=== PATIENT | female | born 1975 | race Caucasian/White ===

== ENCOUNTER 2016-08-31 11:31 | Day surgery (SDC) | payer OTHER ==
[2016-08-27 14:58] VITALS: BMI 37.5
[~2016-08-31 11:31] MED LIST: DEXAMETHASONE SOD PHOSPHATE 10 MG/ML 1 ML VIAL IV ONE; HYDROmorphone 1 MG/ML 1 ML SYRINGE IVP PRN; LACTATED RINGERS 1,000 ML IV SCH; MIDAZOLAM 2 MG/2 ML VIAL IV PRN; ONDANSETRON 4 MG/2 ML VIAL IVP ONE; Pre Op ABX Message 1 EACH MISC MISCELLANE ONE; SCOPOLAMINE 1.5MG/72HR PATCH TRANSDERM ONE
[2016-08-31 11:47] VITALS: RESP 16; TEMP 98.2
[2016-08-31] MEDS ORDERED: LIDOCAINE 1% 20 ML VIAL (10MG/ML) FOR IV START INTRADERMA ONE (11:55)
[2016-08-31] MEDS ORDERED: PROPOFOL 10 MG/ML 20 ML VIAL IV ONE (13:46)
[2016-08-31] MEDS ORDERED: LACTATED RINGERS 1,000 ML IV ONE (14:03)
[2016-08-31] MEDS ORDERED: BUPIVACAIN-EPI 0.25%-1:200,000 30 ML VIAL SQ ONE ×2 (14:18)
[2016-08-31 14:51] VITALS: BP 100/60; PULSE 54
--- NOTE | 2016-08-31 18:47 | P.OP ---
Date of Procedure: 08/31/16 Preoperative Diagnosis: Perianal excoriation and ulcers Morbid Obesity BMI 37.6 Postoperative Diagnosis: Same Procedure(s) Performed: Colonoscopy with random bx Full thickness skin biopsy perianal area Anesthesia: MAC, local Surgeon: Ernestina Otoole Pathology: other Condition: stable Disposition: PACU Indications for Procedure: 41 yrs old female presents with persistent perianal excoriation and multiple non -healing superficial ulcers. No change in bowel habits. She also has tinea cruis in left groin. Multiple topical agents have been used without resolution and she presents for colonoscopy with bx and perianal skin bx to r/o Chron's disease Description of Procedure: The patient was brought to the endoscopy suite and placed in lateral decubitus position. IV sedation was given as per anesthesia team. Patient was on continuous vitals and pulse oximetry monitoring throughout the procedure. A timeout was performed to verify correct patient and correct procedure. Perianal examination did show small external hemorrhoids. Digital rectal examination was performed. No masses or gross blood. A well-lubricated Olympus colonoscope was passed per rectally and was gradually advanced beyond the sigmoid colon, splenic flexure, transverse colon, hepatic flexure and cecum. The ileocecal valve was visualized as well as the appendiceal orifice . The colonoscope was gradually withdrawn inspecting all the mucosal surfaces. Bowel prep was good. No polyps, masses, AV malformations noted. No diverticulosis. Random biopsies taken using cold biopsy forceps . The scope was gradually withdrawn and retroflexed in the rectum . Grade 1 internal hemorrhoids seen. Total withdrawal time was greater than 6 minutes . Betadine was used to prep the perianal skin. 30 mL of 0.25% Marcaine with epinephrine was infiltrated along the proposed skin incision to create a field block. 1.5 cm elliptical skin incision was made along one of the superficial skin ulcer. Full thickness skin bx done. A part of it was sent for ALEJANDRINA mount for fungal elements. Hemostasis checked. Dermabond skin glue applied. Patient tolerated the procedure well and was taken to PACU in stable condition.
== END 2016-08-31 15:40 | disposition home or self-care (01) ==
LOC: ORWHC2ENDO 11:31
PROVIDERS: ATTEND Surgery
DX: K62.6 Ulcer of anus and rectum (principal); L08.89 Other specified local infections of the skin and subcutaneous tissue; E66.01 Morbid (severe) obesity due to excess calories; Z68.37 Body mass index [BMI] 37.0-37.9, adult; Z87.891 Personal history of nicotine dependence; E07.9 Disorder of thyroid, unspecified; F39 Unspecified mood [affective] disorder; X58.XXXA Exposure to other specified factors, initial encounter
CPT/HCPCS: 11100; 45380; 81025; 88305; 88312; Q0112; J1100; J2405; J2704; 87220

== ENCOUNTER → 2018-06-22 | Outpatient (CLI) | payer BC ==
--- NOTE | 2018-06-22 10:46 | MM ---
Reason for exam: screening (asymptomatic). Baseline mammogram. History: Family history of breast cancer in maternal grandmother. Took hormonal contraceptives beginning at age 15. Physical Findings: Nurse did not find any significant physical abnormalities on exam. MG 3D Screening Mammo W/Cad Bilateral CC and MLO view(s) were taken. There are scattered fibroglandular densities. These results were verbally communicated with the patient and result sheet given to the patient on 06/22/18. ASSESSMENT: Benign, BI-RAD 2 RECOMMENDATION: Routine screening mammogram of both breasts in 1 year.
== END | disposition home or self-care (01) ==
LOC: RADMAMWWP 09:41
PROVIDERS: ATTEND Family Medicine
DX: Z12.31 Encounter for screening mammogram for malignant neoplasm of breast (principal); Z80.3 Family history of malignant neoplasm of breast
CPT/HCPCS: 77063; 77067

== ENCOUNTER 2019-11-09 09:16 | Emergency (ER) | payer BC ==
[2019-11-09 09:20] VITALS: RESP 18
--- NOTE | 2019-11-09 09:44 | ED ---
General Adult HPI - General Chief complaint: Neuro Symptoms/Deficit Stated complaint: facial drooping Time Seen by Provider: 11/09/19 09:20 Source: patient, RN notes reviewed, old records reviewed Mode of arrival: ambulatory Limitations: no limitations - History of Present Illness Initial comments: This is a 44-year-old female who presents to the emergency department complaining of left-sided facial droop. Patient states her noticed that at 7 AM yesterday. Patient states she thought it might just go away so she can come in initially. Patient denies any headache. Patient denies any slurred speech. Patient denies any numbness or weakness. Patient denies any recent fever chills or cough. Patient denies any recent cold symptoms. Patient denies any chest pain difficulty breathing shortest breath per patient denies any abdominal pain. - Related Data Home Medications Medication Instructions Recorded Confirmed ALPRAZolam [Xanax] 0.25 mg PO DAILY PRN 08/27/16 08/31/16 Levothyroxine Sodium [Synthroid] 200 mcg PO DAILY 08/27/16 08/31/16 Phentermine HCl [Adipex-P] 37.5 mg PO QAM 08/27/16 08/31/16 Previous Rx's Medication Instructions Recorded valACYclovir HCL [Valacyclovir] 1,000 mg PO TID #30 tab 11/09/19 Allergies Allergy/AdvReac Type Severity Reaction Status Date / Time benzoyl peroxide Allergy Unknown Verified 11/09/19 09:21 salicylic acid Allergy Unknown Verified 11/09/19 09:21 Review of Systems ROS Statement: Those systems with pertinent positive or pertinent negative responses have been documented in the HPI. ROS Other: All systems not noted in ROS Statement are negative. Past Medical History Past Medical History: Thyroid Disorder Additional Past Medical History / Comment(s): change in bowel movement, stomach pain History of Any Multi-Drug Resistant Organisms: None Reported Past Surgical History: Bariatric Surgery, Section, Cholecystectomy, Tubal Ligation, Uterine Ablation Additional Past Surgical History / Comment(s): lap band Past Anesthesia/Blood Transfusion Reactions: Motion Sickness Past Psychological History: Anxiety, Depression Smoking Status: Current every day smoker Past Alcohol Use History: Occasional Past Drug Use History: None Reported - Past Family History Mother Family Medical History: No Reported History General Exam - General Exam Comments Initial Comments: GENERAL: Patient is well-developed and well-nourished. Patient is nontoxic and well- hydrated and is in no acute distress. ENT: Neck is soft and supple. No significant lymphadenopathy is noted. Oropharynx is clear. Moist mucous membranes. Neck has full range of motion without eliciting any pain. EYES: The sclera were anicteric and conjunctiva were pink and moist. Extraocular movements were intact and pupils were equal round and reactive to light. Eyelids were unremarkable. PULMONARY: Unlabored respirations. Good breath sounds bilaterally. No audible rales rhonchi or wheezing was noted. CARDIOVASCULAR: There is a regular rate and rhythm without any murmurs gallops or rubs. ABDOMEN: Soft and nontender with normal bowel sounds. No palpable organomegaly was noted. There is no palpable pulsatile mass. SKIN: Skin is clear with no lesions or rashes and otherwise unremarkable. NEUROLOGIC: Patient is alert and oriented x3. Patient has left-sided facial droop including the forehead. MUSCULOSKELETAL: Normal extremities with adequate strength and full range of motion. No lower extremity swelling or edema. No calf tenderness. LYMPHATICS: No significant lymphadenopathy is noted PSYCHIATRIC: Normal psychiatric evaluation. Limitations: no limitations Course Vital Signs 11/09/19 09:18 Temperature 98.2 F Pulse Rate 80 Respiratory 18 Rate Blood Pressure 121/80 O2 Sat by Pulse 98 Oximetry Medical Decision Making - Medical Decision Making This CT of the brain shows no acute abnormality. Patient's exhibits classic symptoms for Castle's palsy and will be discharged home on antivirals and steroids. Disposition Clinical Impression: Castle's palsy Disposition: HOME SELF-CARE Condition: Good Instructions (If sedation given, give patient instructions): Castle Palsy (ED) Prescriptions: valACYclovir HCL [Valacyclovir] 1,000 mg PO TID #30 tab Is patient prescribed a controlled substance at d/c from ED?: No Referrals: Ronald Manning MD [Primary Care Provider] - 1-2 days Time of Disposition: 10:34
--- NOTE | 2019-11-09 10:21 | CT ---
EXAMINATION TYPE: CT brain wo con DATE OF EXAM: 11/09/2019 COMPARISON: None HISTORY: 44-year-old female Facial drooping for one day TECHNIQUE: Examination was done in axial plane without intravenous contrast. Coronal and sagittal r econstructions performed. CT DLP: 1099.4 mGycm Automated exposure control for dose reduction was used. FINDINGS: There is no evidence of acute intracranial hemorrhage, acute ischemic changes, mass, mass-effect, or extra-axial fluid collection. There is no effacement of cerebral sulci or basal subarachnoid cister ns. There is no hydrocephalus. There is no midline shift. Gutierrez-white matter distinction is preserv ed. Paranasal sinuses and mastoid air cells are well pneumatized. Orbits and globes are intact. Cerumen w ithin the right external auditory canal. IMPRESSION: No acute intracranial abnormality seen. If symptoms persist, follow-up CT or MRI.
[2019-11-09 11:01] VITALS: BP 106/72; PULSE 64; TEMP 98
== END 2019-11-09 11:15 | disposition home or self-care (01) ==
LOC: EC 09:16
DX: G51.0 Bell's palsy (principal); E07.9 Disorder of thyroid, unspecified; F41.9 Anxiety disorder, unspecified; F17.200 Nicotine dependence, unspecified, uncomplicated; Z98.84 Bariatric surgery status; Z79.890 Hormone replacement therapy; Z79.899 Other long term (current) drug therapy; Z88.8 Allergy status to other drugs, medicaments and biological substances
CPT/HCPCS: 70450; 99284

== ENCOUNTER → 2022-03-30 | Outpatient (CLI) | payer OTHER ==
--- NOTE | 2022-03-30 18:18 | CT ---
EXAMINATION TYPE: CT soft tissue neck w con DATE OF EXAM: 03/30/2022 5:44 PM COMPARISON: None HISTORY: palpable lump under chin CT DLP: 644.3 mGycm Automated exposure control for dose reduction was used. CONTRAST: CT scan of the neck is performed following with IV Contrast, patient injected with 100ML mL of Isovue 300. Axial images are obtained, coronal and sagittal reformatted images are reviewed. FINDINGS: Lung apices are clear. There are multiple submandibular soft tissue nodules with the larges t measuring short axis of 1.2 cm most typical of enlarged lymph nodes with mild surrounding soft tiss ue edema. Multilevel hypertrophic and degenerative disc disease of the cervical spine. Vocal cords have a normal appearance. Airway is patent. Base of the tongue symmetric. Parotid glands normal. Nasopharynx and visualized oropharynx symmetric. Submandibular glands normal. There are additional shoddy lymph nodes seen scattered throughout the compartments of the neck. IMPRESSION: Soft tissue nodules corresponding to the palpable abnormality within the submandibular s pace correlate clinically. Most likely etiology pathologic adenopathy. Mild surrounding edema correla te clinically to exclude infectious or neoplastic process.
== END | disposition home or self-care (01) ==
LOC: RADCTMAIN 17:09
PROVIDERS: ATTEND Family Medicine
DX: E04.2 Nontoxic multinodular goiter (principal); R60.0 Localized edema
CPT/HCPCS: 70491; Q9967

== ENCOUNTER 2022-03-31 11:10 | Emergency (ER) | payer OTHER ==
[2022-03-31 11:32] VITALS: BP 113/73; PULSE 68; RESP 16; TEMP 98
--- NOTE | 2022-03-31 11:50 | ED ---
ENT HPI - General Chief complaint: ENT Stated complaint: swelling under chin Source: patient Mode of arrival: ambulatory Limitations: no limitations - History of Present Illness Initial comments: Patient is a 47 year old female presenting to the emergency room with complaints of worsening swelling under her chin. She reports that she woke up 5 days ago ( of last week). She reports that she went to urgent care yesterday and was evaluated and placed on antibiotics she states that she has taken 2 doses of the antibiotics as prescribed and completed a CT that was ordered but she is concerned regarding increase in swelling. She denies any difficulty in swallowing, difficulty in breathing, cough, congestion, localized wound, jaw pain or trouble chewing, fevers or chills. She has not had a swelling like this previously. She has a past medical history significant for hypothyroidism. - Related Data Home Medications Medication Instructions Recorded Confirmed ALPRAZolam [Xanax] 0.25 mg PO DAILY PRN 08/27/16 08/31/16 Levothyroxine Sodium [Synthroid] 200 mcg PO DAILY 08/27/16 08/31/16 Phentermine HCl [Adipex-P] 37.5 mg PO QAM 08/27/16 08/31/16 Previous Rx's Medication Instructions Recorded valACYclovir HCL [Valacyclovir] 1,000 mg PO TID #30 tab 11/09/19 Cephalexin [Keflex] 500 mg PO Q8HR 7 Days #21 cap 03/31/22 Ibuprofen [Motrin] 800 mg PO Q8H PRN 7 Days #21 tab 03/31/22 Allergies Allergy/AdvReac Type Severity Reaction Status Date / Time benzoyl peroxide Allergy Unknown Verified 11/09/19 09:21 salicylic acid Allergy Unknown Verified 11/09/19 09:21 Review of Systems ROS Statement: Those systems with pertinent positive or pertinent negative responses have been documented in the HPI. ROS Other: All systems not noted in ROS Statement are negative. Past Medical History Past Medical History: Thyroid Disorder Additional Past Medical History / Comment(s): change in bowel movement, stomach pain History of Any Multi-Drug Resistant Organisms: None Reported Past Surgical History: Bariatric Surgery, Section, Cholecystectomy, Tubal Ligation, Uterine Ablation Additional Past Surgical History / Comment(s): lap band Past Anesthesia/Blood Transfusion Reactions: Motion Sickness Past Psychological History: Anxiety, Depression Smoking Status: Current every day smoker Past Alcohol Use History: Occasional Past Drug Use History: None Reported - Past Family History Mother Family Medical History: No Reported History General Exam General appearance: alert, in no apparent distress Head exam: Present: atraumatic, normocephalic, normal inspection Eye exam: Present: normal appearance, PERRL, EOMI. Absent: scleral icterus, conjunctival injection, periorbital swelling ENT exam: Present: normal exam, mucous membranes moist, TM's normal bilaterally Neck exam: Present: tenderness (Tenderness at swelling location upon palpation none without palpation.), lymphadenopathy (Large swelling submandibular with additional shotty cervical lymphadenopathy). Absent: thyromegaly Respiratory exam: Present: normal lung sounds bilaterally. Absent: respiratory distress, wheezes, rales, rhonchi, stridor Cardiovascular Exam: Present: regular rate, normal rhythm, normal heart sounds. Absent: systolic murmur, diastolic murmur, rubs, gallop, clicks GI/Abdominal exam: Present: soft, normal bowel sounds. Absent: distended, tenderness, guarding, rebound, rigid Extremities exam: Present: normal inspection. Absent: pedal edema, joint swelling Back exam: Present: normal inspection Neurological exam: Present: alert, oriented X3, CN II-XII intact Psychiatric exam: Present: normal affect, normal mood Skin exam: Present: warm, dry, intact, normal color. Absent: rash Course Vital Signs 03/31/22 11:29 Temperature 98 F Pulse Rate 68 Respiratory 16 Rate Blood Pressure 113/73 O2 Sat by Pulse 100 Oximetry Medical Decision Making - Medical Decision Making 47-year-old female presenting to the emergency room with concerns regarding worsening of swelling of submandibular masslike lesion located centrally without any difficulty in breathing, cough or difficulty in swallowing. No fevers or chills. Computed tomography scan ordered a by urgent care and completed yesterday. Report reviewed. Computed tomography scan soft tissue of the neck with contrast report shows soft tissue nodules corresponding to palpable abnormality within the submandibular space. Was likely etiology she adenopathy. Mild surrounding edema correlate clinically to exclude infectious or neoplastic process. Largest nodule measuring 1.2 cm. No indication for further diagnostic imaging or laboratory studies. Less than 48 hours of current antibiotic therapy. Likely insufficient antibiotic intake for response however given concern for increase in size on current antibiotic therapy will add Keflex along with anti-inflammatory of ibuprofen. Will discharge home in stable condition with continued duration of amoxicillin as prescribed by urgent care along with additional antibiotic of Keflex and ibuprofen. Will give information regarding local follow-up with ENT if symptoms do not improve.. Return parameters to the emergency room discussed at length. Case discussed with Dr. Carey. Disposition Clinical Impression: Lymphadenopathy, submandibular Disposition: HOME SELF-CARE Condition: Stable Instructions (If sedation given, give patient instructions): Lymphadenopathy (ED) Additional Instructions: Please complete course of antibiotic as prescribed by urgent care along with new antibiotic prescribed today. Utilize ibuprofen prescription as needed for swelling and pain. Please follow-up with primary care provider along with urinalysis and throat specialist as needed. Please return to the Emergency Department if symptoms worsen or any other concerns. Prescriptions: Cephalexin [Keflex] 500 mg PO Q8HR 7 Days #21 cap Ibuprofen [Motrin] 800 mg PO Q8H PRN 7 Days #21 tab PRN Reason: Pain Is patient prescribed a controlled substance at d/c from ED?: No Referrals: All Lee MD [Primary Care Provider] - 1-2 days Chip Valencia DO [Doctor of Osteopathic Medicine] - 1-2 days Time of Disposition: 11:49
== END 2022-03-31 12:14 | disposition home or self-care (01) ==
LOC: EC 11:10
DX: R59.0 Localized enlarged lymph nodes (principal); E03.9 Hypothyroidism, unspecified; F41.9 Anxiety disorder, unspecified; F32.A Depression, unspecified; F17.200 Nicotine dependence, unspecified, uncomplicated; Z79.890 Hormone replacement therapy
CPT/HCPCS: 99282